=== PATIENT | male | born 1960 | race Caucasian/White ===

== ENCOUNTER 2020-12-28 11:21 | Outpatient (REF) | payer OTHER, SELFPAY ==
[2020-12-28 12:24] LABS: MANUAL DIFF FLAG NO
[2020-12-28 12:25] LABS: Basophils Percent Auto 0.5 % (0-2); Eosinophils Absolute Auto 0.2 X10*3/uL (0.0-0.4); Hematocrit 43.6 % (42-52); Hemoglobin 15.1 g/dl (14.0-18.0); Imm Gran Abs Auto 0.02 X10*3/uL (0.00-0.03); Imm Gran Pct Auto 0.3 % (0.0-0.4); Lymphocytes Absolute Auto 2.7 X10*3/uL (1.2-4.9); Lymphocytes Percent Auto 35.3 % (20-40); Mean Corpuscular HGB Conc 34.6 g/dl (31.0-36.0); Mean Corpuscular Hemoglobin 29.9 pg (27.0-33.0); Mean Corpuscular Volume 86.3 fL (80-98); Monocytes Absolute Auto 0.7 X10*3/uL (0.1-1.2); Monocytes Percent Auto 8.8 % (2-11); Neutrophils Percent Auto 52.1 % (45-73); Platelet Count 159 X10*3/uL (160-400); Red Blood Count 5.05 X10*6/uL (4.60-5.80); Red Cell Distribution Width 13.4 % (11.0-16.0); White Blood Count 7.6 X10*3/uL (4.8-10.8)
[2020-12-28 12:56] LABS: Alanine Aminotransferase 30 U/L (0-40); Albumin Level 4.7 g/dL (3.5-5.0); Alkaline Phosphatase 67 U/L (39-117); Anion Gap 15 (12-20); Aspartate Amino Transferase 30 U/L (5-37); Bilirubin Total 0.9 mg/dL (0.0-1.0); Blood Urea Nitrogen 24 mg/dL (9-16); Carbon Dioxide 27 mmol/L (22-29); Chloride 105 mmol/L (96-108); Cholesterol 169 mg/dL; Estimated Glomerular Filt Rate > 60; Glucose Fasting 99 mg/dL (60-99); HDL Cholesterol 40 mg/dL; LDL Cholesterol Calculated 87 mg/dl; Potassium 4.8 mmol/L (3.3-5.1); Sodium 142 mmol/L (135-145); Total Protein 7.7 g/dL (6.5-8.0); Triglycerides 214 mg/dL
[2020-12-28 13:16] LABS: PSA,Total (Free>4and<10) 0.85 ng/mL (0.00-4.00)
[2020-12-28 13:42] LABS: Uric Acid 10.2 mg/dL (3.4-7.0)
== END 2020-12-28 11:22 | disposition home or self-care (01) ==
LOC: HO.HMGCLDS 11:21
PROVIDERS: PCP Internal Medicine; Visit Provider Internal Medicine
DX: Z00.00 Encounter for general adult medical examination without abnormal findings (principal); Z12.5 Encounter for screening for malignant neoplasm of prostate; Z87.39 Personal history of other diseases of the musculoskeletal system and connective tissue
CPT/HCPCS: 36415; 80053; 80061; 84153; 84550; 85025

== ENCOUNTER 2021-01-02 13:35 | Outpatient (REF) | payer OTHER, SELFPAY ==
--- NOTE | ~2021-01-02 | US_ITS ---
EXAMINATION: US SCROTUM CLINICAL INFORMATION: Other specified disorders of male genital organs. COMPARISON: None TECHNIQUE: A sonogram of the scrotum was performed assessing yates-scale appearance and color Doppler flow. Spectral Doppler analysis of the arterial and venous flow were performed in the testes bilaterally. FINDINGS: RIGHT: Right testicle measures 4.7 x 1.9 x 3.4 cm, volume 15.5 mL. There is a small calcification in the right testicle. No other focal lesion is seen. Spectral Doppler analysis of the arterial and venous flow is normal in the right testis. There is a 1.6 x 1.2 x 1.4 cm slightly complex right epididymal head cyst. There is a 8.7 x 5.3 x 6.5 cm cyst inferior to the right testicle. It is uncertain whether this represents a loculated hydrocele. It could represent a large epididymal tail exophytic cyst. Right epididymal Doppler flow is normal. No right varicocele is seen. LEFT: Left testicle measures 4.8 x 2.6 x 4.0 cm, volume 23.3 mL. No focal testicular parenchymal lesions are visualized. Spectral Doppler analysis of the arterial and venous flow is normal in the left testis. There is a 4.2 x 3.8 x 4.6 cm complex cyst superior to the left testicle. It is uncertain whether this represents an exophytic epididymal head cyst or loculated complex hydrocele.. No left varicocele is seen. Left epididymal Doppler flow is not seen. US/US scrotum IMPRESSION: 1.6 x 1.2 x 1.4 cm minimally complex right epididymal head cyst. Large simple cyst inferior to the right testicle measuring 8 x 5 x 7 cm questionable for an epididymal tail exophytic cyst versus loculated hydrocele. 4 x 4 x 5 cm complex cyst superior to the left testicle questionable for a left epididymal head cyst versus loculated hydrocele.
== END 2021-01-02 13:36 | disposition home or self-care (01) ==
LOC: HO.US 13:35
PROVIDERS: Visit Provider Internal Medicine
DX: N50.89 Other specified disorders of the male genital organs (principal)
CPT/HCPCS: 76870

== ENCOUNTER → 2021-03-18 14:15 | Outpatient (BNVA) | payer OTHER, SELFPAY | PROVIDERS: PCP Internal Medicine; Visit Provider Urology | DX: N43.40 Spermatocele of epididymis, unspecified (principal) | CPT/HCPCS: 99202 ==

== ENCOUNTER 2021-04-21 09:32 | Day surgery (SDC) | payer OTHER, SELFPAY ==
[2021-04-15 11:14] VITALS: BMI 44.2
--- NOTE | 2021-04-18 12:25 | HO.ANESPROP2 ---
Documented by User: Erica Middleton NP 04/18/21 12:26 HPI - Anesthesia Eval Consult details Narrative: 60yo M for Bilateral Excision Spermatocele PMFSH Active Problems Active Problems: All Active Problems (Updated 03/18/21 @ 14:58 by Sergio Sanchez MD) Spermatocele (Acute) Hx of gout (Acute) Colon cancer screening (Acute) Testicular mass (Acute) Past Medical History Medical History Colon cancer screening Depressed Hx of gout Testicular mass Tibial fracture Surgical History Surgical History Hx of appendectomy Hx of ventral hernia repair Social History Social History Patient Tobacco Use Status: Current everyday Tobacco user Cigarettes Per Day: 5 e-Cigarette/Vaping Use: Never Used Use of substances other than those prescribed or required for medical reasons: No Are you DNR?: No Advance Directives: No Advance Directives Information Provided: Yes Meds Allergies Allergy/AdvReac Type Severity Reaction Status Date / Time No Known Allergies Allergy Verified 03/18/21 14:19 Home Medications Medication Instructions Recorded Confirmed Last Taken Type No Known Home Meds 12/06/20 12/06/20 Unknown History Exam Exam Date and Time: April 18, 2021 1225 Height,Weight and Vital Signs: Height 5 ft 8 in Weight 131.995 kg Pertinent Lab Results Pertinent Lab Results: Laboratory Tests 12/28/20 12/28/20 11:30 11:30 WBC 7.6 Hgb 15.1 Hct 43.6 Plt Count 159 L Sodium 142 Potassium 4.8 Chloride 105 Carbon Dioxide 27 BUN 24 H Creatinine 1.12 Assessment and Plan Assessment Anesthesia Assessment: Chart Reviewed Documented by User: Gonzalo Jones 04/21/21 16:52 PMFSH Past Medical History Medical History Colon cancer screening Depressed Hx of gout Testicular mass Tibial fracture Functional capacity: independent ambulation Family History Family history of problems with anesthesia: No Surgical History Surgical History Hx of appendectomy Hx of ventral hernia repair History of Problems with Anesthesia: No Social History Social History Patient Tobacco Use Status: Current everyday Tobacco user Cigarettes Per Day: 5 e-Cigarette/Vaping Use: Never Used Use of substances other than those prescribed or required for medical reasons: No Are you DNR?: No Advance Directives: No Advance Directives Information Provided: Yes Meds Allergies Allergy/AdvReac Type Severity Reaction Status Date / Time No Known Allergies Allergy Verified 03/18/21 14:19 Home Medications Medication Instructions Recorded Confirmed Last Taken Type No Known Home Meds 12/06/20 12/06/20 Unknown History Exam Airway Mallampati Class: III TM Dist: >3cm Neck ROM: Full Loose/Missing/Broken Teeth: Yes Heart: rrr Lungs: bl breath sounds Assessment and Plan Final Anesthetic Review Family History of Problems with Anesthesia: No History of Problems with Anesthesia: No NPO: Yes ASA Class: III Final Preanesthetic Review: Meds/Allgs Chart Reviewed and Anes Risks/Benef Reviewed Patient Risk: Intermediate Procedure Risk: Intermediate Anesthetic Plan Anesthetic Plan: GA Disposition: Standard PACU
[2021-04-21 10:40] VITALS: PULSE 73; RESP 18; TEMP 36.6; O2SAT 95
[2021-04-21] MEDS: Lactated Ringers 1,000 ML 100 ML IVCONT (11:09)
--- NOTE | 2021-04-21 16:05 | P.HPSUR_ITS ---
Pre-Procedural Eval Section A Date of Service: 04/21/21 The patient is an INPATIENT: No Changes since office visit: No Cold of Flu in the past 2 weeks, No New Medical Problems, No Changes in Medication and No Patient answered all questions The History & Physical has been completed within 30 days and I have reviewed it.: No Section B Chief Complaint: spermatocele Details of Present Illness: bilateral spermatocele repair Relevant Family History (Specify if Yes): No Relevant Social History: None Present Medications: see Short Stay Collaborative assessment Medical History: No relevant PMH History of Previous Operations: No relevant previous surgery Allergies: Allergies Allergy/AdvReac Type Severity Reaction Status Date / Time No Known Allergies Allergy Verified 03/18/21 14:19 Review of Systems Sugical H&P ROS: Negative: Constitution, Cardiovascular, Respiratory, Neurological, Psychiatric, Hem-Onc, Allergic/Immunologic, Gastrointestinal, Genitourinary, Musculoskeletal, Integumentary, Endocrine and Eyes/Ears/Nose/Throat Exam Surgical H&P Exam: Normal: HEENT, Normal: Heart, Normal: Lungs, Normal: Extremi ties, Normal: Abdomen, Normal: Skin and Normal: Neurological Plan Diagnosis/Plan: Unchanged ( bilateral spermatocele repair) I have reviewed the history and physical and performed a pertinent physical examination on my patient. No changes have occurred unless specified.
[2021-04-21 18:31] VITALS: BP 145/81; PULSE 83; RESP 19; TEMP 36.6; O2SAT 93
[2021-04-21 18:38] VITALS: BP 149/97; PULSE 80; RESP 18; O2SAT 95
[2021-04-21 18:45] VITALS: BP 142/80; PULSE 75; RESP 20; O2SAT 92
--- NOTE | 2021-04-21 18:47 | W.PM.OPN ---
Operative Note Operative Note Date of Service: 04/21/21 Narrative: PreOperative Diagnosis: bilateral spermatocele Post Operative Diagnosis: left complex hydrocele, right spermatocele Procedure: 1. Left hydrocelectomy 2. Right spermatocelectomy Surgeon: Dr Sergio Sanchez Anesthesia: general Indications for procedure: 60-year-old male. Discomfort from large swelling in testicles. Ultrasound with 8 cm left complex hydrocele and right spermatocele. Recommend surgical intervention with bilateral procedure. He is aware the risks of recurrence, infection. Procedure: After informed consent was verified the patient was brought to the operating room and placed in a supine position. Anesthesia was administered per protocol. the patient was prepped and draped in sterile fashion. Safety pause time-out was performed. Antibiotics have been given. Local anesthetic placed on the median raphe. A 3 in incision was developed through the skin into the subcutaneous tissue. The left testicle was dissected from its sac in scrotum and delivered. Appeared that there was a complex hydrocele. This was opened and a bottle neck procedure was performed. Segment of tissue was removed. Great care was taken to maintain the bleeding edges. A spermatocele was found within the head of the epididymis on the left side in this was also removed. Cautery was used to maintain control plaque the bottle neck procedure used a 3-0 Vicryl interlocking suture in order to lock the hydrocele sac as it was wrapped around the cord. The testicle was then placed back into the scrotum. A drain was placed through the dependent portion of the scrotum and left in position. Attention was directed to the right testicle. This was also delivered through the midline incision. It was found to be a 2 cm cyst within the right epididymal head. This was dissected free carefully. The area once this was removed was reattached to the testicle with 3-0 Vicryl. The testicle was placed back within the sac and closed with running 3-0 Vicryl before a 2nd layer was closed over the incision with another running 3-0 Vicryl. The left testicle area was closed with a running 3-0 Vicryl. The midline was then closed with a running 3-0 Vicryl. The skin was closed with a set of interrupted 3-0 chromics. The drain was sewn into a dressing after the area being cleaned and dried. A Xeroform gauze was placed on the midline incision. the drain had been sewn into part of the dressing so will be easy to remove in 48 hours. Mesh pants were used to keep the dressing in place on the scrotum. He tolerated procedure well was extubated in operating room transferred in stable condition to the recovery area Pathology: Hydrocele sac and spermatocele sac Drains: Deb drain in place left side
[2021-04-21 18:52] VITALS: BP 138/88; PULSE 75; RESP 20; O2SAT 92
[2021-04-21 19:20] VITALS: BP 138/82; PULSE 88; RESP 18; TEMP 36.4; O2SAT 95
== END 2021-04-21 19:24 | disposition home or self-care (01) ==
PROVIDERS: PCP Internal Medicine; Visit Provider Urology
PROC: (CPT 54840; principal; 2021-04-21 12:40)
DX: N43.40 Spermatocele of epididymis, unspecified (principal); N43.2 Other hydrocele; N50.89 Other specified disorders of the male genital organs; F32.9 Major depressive disorder, single episode, unspecified; Z79.899 Other long term (current) drug therapy; F17.210 Nicotine dependence, cigarettes, uncomplicated
CPT/HCPCS: 55040; 54840; 88304; J0330; J0690; J1100; J2405; J3010

== ENCOUNTER → 2021-06-06 09:53 | Outpatient (BNVA) | payer OTHER, SELFPAY | PROVIDERS: PCP Internal Medicine; Visit Provider Urology | DX: N43.40 Spermatocele of epididymis, unspecified (principal) | CPT/HCPCS: 99212 ==

== ENCOUNTER 2021-06-13 12:38 | Outpatient (REF) | payer OTHER, SELFPAY ==
[2021-06-13 14:24] LABS: Alanine Aminotransferase 18 U/L (0-40); Anion Gap 13 (12-20); Aspartate Amino Transferase 18 U/L (5-37); Blood Urea Nitrogen 14 mg/dL (9-16); Calcium 9.4 mg/dL (8.4-10.2); Carbon Dioxide 24 mmol/L (22-29); Chloride 108 mmol/L (96-108); Estimated Glomerular Filt Rate > 60; Glucose Fasting 93 mg/dL (60-99); Sodium 141 mmol/L (135-145)
[2021-06-13 14:35] LABS: Uric Acid 9.4 mg/dL (3.4-7.0)
== END 2021-06-13 12:39 | disposition home or self-care (01) ==
LOC: HO.HMGCLDS 12:38
PROVIDERS: PCP Internal Medicine; Visit Provider Internal Medicine
DX: Z87.39 Personal history of other diseases of the musculoskeletal system and connective tissue (principal)
CPT/HCPCS: 36415; 80048; 84450; 84460; 84550

== ENCOUNTER → 2021-12-04 10:45 | Outpatient (BNVA) | payer OTHER, SELFPAY | PROVIDERS: PCP Internal Medicine; Visit Provider Urology | DX: N43.40 Spermatocele of epididymis, unspecified (principal) | CPT/HCPCS: 99212 ==

== ENCOUNTER 2022-08-21 10:34 | Outpatient (REF) | payer OTHER, SELFPAY ==
[2022-08-21 11:13] LABS: MANUAL DIFF FLAG NO
[2022-08-21 11:23] LABS: Basophils Absolute Auto 0.1 X10*3/uL (0.0-0.2); Basophils Percent Auto 0.9 % (0-2); Eosinophils Percent Auto 0.1 % (0-4); Hematocrit 44.6 % (42.0-52.0); Hemoglobin 15.6 g/dl (14.0-18.0); Imm Gran Abs Auto 0.03 X10*3/uL (0.00-0.03); Imm Gran Pct Auto 0.3 % (0.0-0.4); Lymphocytes Absolute Auto 3.8 X10*3/uL (1.2-4.9); Mean Corpuscular Hemoglobin 29.4 pg (27.0-33.0); Mean Platelet Volume 10.3 fL (9.4-12.4); Monocytes Absolute Auto 0.8 X10*3/uL (0.1-1.2); Monocytes Percent Auto 8.4 % (2-11); Neutrophils Absolute Auto 4.6 x10*3/uL (2.0-8.3); Neutrophils Percent Auto 49.3 % (45-73); Platelet Count 143 X10*3/uL (160-400); Red Blood Count 5.31 X10*6/uL (4.60-5.80); White Blood Count 9.2 X10*3/uL (4.8-10.8)
[2022-08-21 11:36] LABS: Estimated Average Glucose 97 mg/dL
[2022-08-21 12:03] LABS: Anion Gap 12 (12-20); Blood Urea Nitrogen 21 mg/dL (9-16); Calcium 9.7 mg/dL (8.4-10.2); Carbon Dioxide 28 mmol/L (22-29); Chloride 106 mmol/L (96-108); Estimated Glomerular Filt Rate > 60; Glucose Random 71 mg/dL (60-115); Potassium 3.8 mmol/L (3.3-5.1); Sodium 142 mmol/L (135-145)
== END 2022-08-21 10:35 | disposition home or self-care (01) ==
LOC: HO.HMGCLDS 10:34
PROVIDERS: PCP Internal Medicine; Visit Provider Physician Assistant
DX: R53.83 Other fatigue (principal)
CPT/HCPCS: 36415; 80048; 83036; 85025

== ENCOUNTER 2023-01-18 12:16 | Outpatient (AMB) | payer OTHER, SELFPAY ==
[2023-01-18 12:18] VITALS: BP 136/88; PULSE 86; O2SAT 98; BMI 42.9
--- NOTE | 2023-01-18 12:18 | A.OFFPC_ITS ---
Vital Signs 01/18/23 12:18 Height 5 ft 8 in Weight 282 lb 2 oz BMI 42.9 BP 136/88 Blood Pressure Location Rt brachial Position Sitting Pulse 86 Pulse Source Pulse Oximeter Pulse Oximetry (%) 98 Oxygen Delivery Method Room Air Intake Visit Reasons: PE Intake Note: Pt is here today for his PE Allergies No Known Allergies Allergy (Verified 01/19/23 16:40) Medication List - Last Reconciled 01/19/23 by Becki Barlow MD allopurinol 300 mg PO DAILY 30 days indomethacin 50 mg PO BID PRN naproxen 500 mg PO BID PRN 7 days Tobacco use date assessed: 01/18/23 Dental Screening Dental Screen Date: 01/18/23 Did you have a dental visit in the last 12 months?: Yes Did you have a dental problem in the last 6 months where you did not have access to dental care?: No Was dental information given to patient?: No HPI PE HPI Details 62-year-old male with with obesity, hyperuricemia with history of gout, here today for his physical exam. He states that he has been feeling well, not had any attacks of gout since last visit, but needs a refill on his allopurinol. He has not been following any you certain diet, but states that he stays acti ve, does a lot of yd work. [facility] Medical History Annual visit for general adult medical examination with abnormal findings Colon cancer screening Hx of gout Hyperuricemia Morbid obesity Testicular mass Tibial fracture Surgical History Hx of appendectomy Hx of ventral hernia repair Social History Housing: Apartment Patient Tobacco Use Status: Current someday Tobacco user e-Cigarette/Vaping Use: Never Used Current occupational status: unemployed Cognitive needs: No Hearing needs: No Vision needs: No Questionnaire PHQ-9 Over the last 2 weeks, how often have you been bothered by any of the following problems? 1. Little interest or pleasure in doing things: not at all 2. Feeling down, depressed, or hopeless: not at all 3. Trouble falling or staying asleep, or sleeping too much: not at all 4. Feeling tired or having little energy: not at all 5. Poor appetite or overeating: not at all 6. Feeling bad about yourself - or that you are a failure or have let yourself or your family down: not at all 7. Trouble concentrating on things, such as reading the newspaper or watching television: not at all 8. Moving or speaking so slowly that other people could have noticed. Or the opposite - being so fidgety or restless that you have been moving around a lot more than usual: not at all 9. Thoughts that you would be better off or of hurting yourself in some way: not at all Total score: 0 Depression Screening Interpretation: Negative 26213 - PHQ-9 Billing: Yes Source: Developed by Drs. Gelacio Barraza, Marilyn Reynolds, Ethan Baez and colleagues, with an educational leslye from [employer]. Thrive Questionnaire Date Thrive assessed: 01/19/23 I am a: Patient What is your living situation today?: I have a steady place to live Within the past 12 months, did the food you bought not last and you didn't have the money to get more?: Never true Within the past 12 months, did you worry whether your food would run out before you got money to buy more?: Never true Do you have trouble paying for medicines?: No Do you have trouble getting transportation to medical appointments?: No Do you have trouble paying your heating and electricity bill?: No Do you have trouble taking care of your child, family member or friend?: No Do you have trouble with day-to-day activities such as bathing, preparing meals, shopping, managing finances, etc.?: No Are you currently unemployed and looking for a job?: No Are you interested in more education?: No AUDIT C Alcohol Use Questionnaire (AUDIT-C) 1. How often do you have a drink containing alcohol?: Never 2. How many drinks containing alcohol do you have on a typical day when you are drinking?: 1 or 2 3. How often do you have six or more drinks on one occasion?: Never Total Score: 0 MATIAS-7 AMB Questionnaire MAITAS-7 Date MATIAS - 7 assessed: 01/19/23 Feeling nervous, anxious, or on edge: 0 = Not at all Not being able to stop or control worryin = Not at all Worrying too much about different things: 0 = Not at all Trouble relaxin = Not at all Being so restless that it is hard to sit still: 0 = Not at all Becoming easily annoyed or irritable: 0 = Not at all Feeling afraid as if something awful might happen: 0 = Not at all Total MATIAS-7 score (0-4 normal; 5-9 mild; 10-14 moderate; 15-21 severe): 0 Source: Developed by Drs. Gelacio Barraza, Marilyn Reynolds, Ethan Baez and colleagues, with an educational leslye from [employer]. MATIAS-7 Assessment Billing MATIAS-7 Assessment Tool: MATIAS-7 Assessment 59622 Review of Systems Const Denies body aches, Denies fever(s), Denies headache(s) and Denies weakness Eyes Denies change in vision ENT Reports Normal hearing present, Denies dizziness, Denies headache(s), Denies nasal congestion, Denies nasal discharge and Denies sore throat Card Denies chest pain, Denies lightheadedness and Denies dyspnea Resp Denies chest congestion, Denies cough and Denies dyspnea GI Denies abdominal pain, Denies change in bowel habits and Denies heartburn Denies hematuria, Denies difficulty urinating, Denies genital pain, Denies dysuria, Denies urinary frequency, Denies urinary incontinence and Denies urinary urgency Musc Reports no additional complaints Skin/Breast Denies lesions and Denies rash Neuro Reports Normal hearing present, Denies dizziness, Denies headache(s), Denies Sensory deficit (Neuro) and Denies weakness Psych Reports no additional complaints Endo Reports no additional complaints Twin/Lymph Reports no additional complaints Aller/Immun Reports no additional complaints Physical exam (Primary Care) Vital Signs: Last Vital Signs Pulse 86 01/18/23 12:18 BP 136/88 01/18/23 12:18 Pulse Ox 98 01/18/23 12:18 Oxygen Delivery Method Room Air 01/18/23 12:18 BMI result Body Mass Index 42.9 BMI Assessment/Plan discussion: High BMI High, discussed plan: lifestyle, weight reduction, dietary and physical activity Tobacco/Smoking Status: Tobacco use Status Tobacco use date assessed 01/18/23 01/18/23 12:19 Patient Tobacco Use Status Current someday Tobacco 01/18/23 13:07 e-Cigarette/Vaping Use Never Used 01/18/23 12:19 Are you ready to quit: No Tobacco cessation counseling provided: No Tobacco use cessation counseling not done medical reason: other (declined) Depression Screening Interpretation: Negative Thrive Assessment: Date of Thrive Assessment Date Thrive assessed 06/13/21 01/18/23 12:19 Const General: cooperative, healthy appearing, no acute distress and alert Nutritional Appearance: obese Orientation/consciousness: patient oriented x3 Limitations: no limitations HENMT Head: Yes normal to inspection, Yes normocephalic and Yes atraumatic Ears: hearing grossly normal bilaterally, external ears normal, TM's normal bilaterally and EAC's normal General nose exam: Normal external nose present, Normal nasal mucous membranes and turbinates present and No nasal discharge present Face and sinus: Yes normal facial exam, Yes sinuses nontender and Yes face symmetric Mouth: Normal oral and palatal mucosa present, lip normal, tongue normal, oropharynx normal and moist mucous membranes Teeth and gingiva: dentition normal and gingiva normal Throat: Yes posterior oropharynx normal Eyes Conjunctivae: conjunctivae normal Sclerae: sclerae normal Pupils: Equal, round and reactive pupils present EOM: EOMs intact bilaterally Neck Neck: Yes full ROM and Yes no lymphadenopathy Thyroid: Thyroid normal Carotids: normal carotid upstroke Lymphatic: no lymphadenopathy noted Chest Chest palpation & inspection: normal inspection of the chest Resp Effort & Inspection: normal respiratory effort and able to speak in complete sentences Auscultation: clear to auscultation bilaterally Cardio Jugular venous distension: no JVD Rate: regular rate Rhythm: regular rhythm Heart sounds: S1 normal heart sound present and S2 normal heart sound present GI Inspection: Yes Abdominal panniculus present and Yes obesity Palpation (GI): Soft to palpation, nontender, no guarding and no masses Auscultation: normal bowel sounds General: Yes no CVA tenderness Male General Exam: Yes normal external exam, No hernia, No inguinal lymphadenopathy and No Genital lesions present Penis: normal penis and No Genital lesions present Scrotum: scrotum normal Testes: Testes normal Back/Spine/Pelvis Back: no CVA tenderness Skin General skin exam: no rashes or lesions noted Neuro General: patient oriented x3, gait normal, moves all extremities, no focal motor deficits and CN's II-XI intact bilaterally Cranial nerves: Yes Equal, round and reactive pupils present and Yes Normal hearing present Cognition (Neuro): normal cognition Gait exam (Neuro): Normal gait present Motor exam (neuro): 5/5 motor strength present throughout Sensory Exam: No Sensory deficit (Neuro) Extrem General: Yes normal to inspection, Yes full ROM, Yes no pedal edema and Yes normal gait Psych Appearance: grossly normal and well kempt Mental Status: mental status grossly normal Speech and movement: Normal speech and movement present Affect: normal affect Attitude: cooperative Thought process: Normal thought process present Thought content: Normal thought content present Assessment and Plan Assessment & Plan (1) Annual visit for general adult medical examination with abnormal findings: Code(s): Z00.01 - Encounter for general adult medical examination with abnormal findings Plan: Will check appropriate labs. Recommended dental visit every 6 months and regular eye exams, at least every 2 years. Take adequate calcium in diet and vitamin-D 3 at 2000 IU per cap once a day, in addition to weight-bearing exercises to help maintain good muscle tone and weight control. Instructed to do self-testicular exam check for any mass. Declines getting vaccines, does not believe in them. Referred to GI for initial screening colonoscopy (2) Hx of gout: Code(s): Z87.39 - Personal history of other diseases of the musculoskeletal system and connective tissue Plan: Check uric acid , recommend to follow a low purine diet (3) Hyperuricemia: Code(s): E79.0 - Hyperuricemia without signs of inflammatory arthritis and tophaceous disease Plan: Check serum uric acid, refill sent for already. (4) Colon cancer screening: Code(s): Z12.11 - Encounter for screening for malignant neoplasm of colon Plan: Referred to GI for his screening colonoscopy (5) Morbid obesity: Code(s): E66.01 - Morbid (severe) obesity due to excess calories Plan: Discussed need to increase activity and wt reduction. Recommended focusing on improving your health instead of dieting. : Eat Mediterranean diet, limit foods high in fat, sugar, and calories, eat slowly, pay attention to portion sizes, plan your meals ahead of time, start regular physical activity 150 minutes of moderate intensity exercise or 90 minutes/week of vigorous exercise and increase water intake. Orders: Orders Lipid Panel 01/18/23 E66.9 - Obesity, unspecified, E79.0 - Hyperuricemia without signs of inflammatory arthritis and tophaceous disease, Z00.01 - Encounter for general adult medical examination with abnormal findings, Z87.39 - Personal history of other diseases of the musculoskeletal system and connective tissue PSA,Total (Free>4and<10) 01/18/23 E66.9 - Obesity, unspecified, E79.0 - Hyperuricemia without signs of inflammatory arthritis and tophaceous disease, Z00.01 - Encounter for general adult medical examination with abnormal findings, Z87.39 - Personal history of other diseases of the musculoskeletal system and connective tissue Uric Acid 01/18/23 E66.9 - Obesity, unspecified, E79.0 - Hyperuricemia without signs of inflammatory arthritis and tophaceous disease, Z00.01 - Encounter for general adult medical examination with abnormal findings, Z87.39 - Personal history of other diseases of the musculoskeletal system and connective tissue Referrals Gastroenterology Referral Z12.11 - Encounter for screening for malignant neoplasm of colon Medications: Refilled allopurinol 300 mg PO DAILY 30 days 90 tabs 3RF E79.0 - Hyperuricemia without signs of inflammatory arthritis and tophaceous disease, Z87.39 - Personal history of other diseases of the musculoskeletal system and connective tissue Review Patient declined Pneumococcal Vaccine: 01/18/23 Flu Vaccine not done: patient reason Declined TDap/Td: 01/18/23 Coding Level of Care Code Est Pt Prev Care 40-64y(40249) Diagnoses Annual visit for general adult medical examination with abnormal findings Z00.01 Hx of gout Z87.39 Hyperuricemia E79.0 Colon cancer screening Z12.11 Morbid obesity E66.01 Additional Codes MATIAS-7 Assessment Billing - MATIAS-7 Assessment Tool: MATIAS-7 Assessment [id number] ([id number])
== END 2023-01-18 14:35 | disposition home or self-care (01) ==
PROVIDERS: Visit Provider Internal Medicine
DX: Z00.00 Encounter for general adult medical examination without abnormal findings (principal); Z87.39 Personal history of other diseases of the musculoskeletal system and connective tissue; E66.01 Morbid (severe) obesity due to excess calories; Z68.41 Body mass index [BMI] 40.0-44.9, adult; E79.0 Hyperuricemia without signs of inflammatory arthritis and tophaceous disease
CPT/HCPCS: 99396

== ENCOUNTER 2023-01-18 13:58 | Outpatient (REF) | payer OTHER, SELFPAY ==
[2023-01-18 17:30] LABS: Cholesterol 193 mg/dL (<200); HDL Cholesterol 54 mg/dL (>40); LDL Cholesterol Calculated 101 mg/dL (<100); Triglycerides 193 mg/dL (<150); Uric Acid 9.4 mg/dL (3.4-7.0)
[2023-01-18 17:39] LABS: PSA,Total (Free>4and<10) 0.65 ng/mL (0.00-4.00)
== END 2023-01-18 13:59 | disposition home or self-care (01) ==
LOC: HO.HMGCLDS 13:58
PROVIDERS: PCP Internal Medicine; Visit Provider Internal Medicine
DX: Z00.01 Encounter for general adult medical examination with abnormal findings (principal); Z12.5 Encounter for screening for malignant neoplasm of prostate; E66.9 Obesity, unspecified; E79.0 Hyperuricemia without signs of inflammatory arthritis and tophaceous disease; Z87.39 Personal history of other diseases of the musculoskeletal system and connective tissue
CPT/HCPCS: 36415; 80061; 84153; 84550

== ENCOUNTER 2023-11-26 09:24 | Outpatient (AMB) | payer OTHER, SELFPAY ==
--- NOTE | 2023-11-26 09:50 | AM.OFFWIN_ITS ---
Intake Vital Signs 11/26/23 09:51 Height 5 ft 8 in Weight 281 lb BMI 42.7 BP 132/80 Blood Pressure Location Rt brachial Position Sitting Pulse 82 Pulse Source Pulse Oximeter Temp 98.2 F Temp Source Temporal Artery Scan Pulse Oximetry (%) 98 Intake Visit Reasons: EP gout/stomach pain ([place] medication) Intake Note: pt is here for gout in right foot Patient Tobacco Use Status: Current someday Tobacco user Allergies No Known Allergies Allergy (Verified 11/26/23 09:52) Do you need a note to return to daycare/school/sports/work: No HPI HPI Comments History of Present Illness Details 63 y/o male patient who presents to walk in clinic with c/o Gout. Reports long h/o Gout on multiple joints all over my body for ~ >20 years. He presents some Gout medication that he purchased from [employer], that reports working better that Allopurinol (that was prescribed by his PCP). This morning Pt took Allopurinol on empty stomach, and ended up throwing up during the visit. Pt reports stopped taking the medication for ~ [address] [facility] Medical History Annual visit for general adult medical examination with abnormal findings Colon cancer screening Hx of gout Hyperuricemia Morbid obesity Testicular mass Tibial fracture Surgical History Hx of appendectomy Hx of ventral hernia repair Social History Housing: Apartment Patient Tobacco Use Status: Current someday Tobacco user e-Cigarette/Vaping Use: Never Used Current occupational status: unemployed Cognitive needs: No Hearing needs: No Vision needs: No Review of Systems Const All systems reviewed & are unremarkable except as noted in HPI and below Physical Exam Vital Signs: Last Vital Signs Temp 98.2 F 11/26/23 09:51 Pulse 82 11/26/23 09:51 BP 132/80 11/26/23 09:51 Pulse Ox 98 11/26/23 09:51 BMI result Body Mass Index 42.7 Const General: comfortable and no acute distress Nutritional Appearance: obese Orientation/consciousness: patient oriented x3 Neuro General: patient oriented x3, gait normal and moves all extremities Extrem Right lower extremity: ankle Details: tenderness, swelling and no edema; no ecchymosis and no crepitus Left lower extremity: normal to inspection and full ROM Psych Speech and movement: Normal speech and movement present Assessment & Plan Assessment & Plan (1) Gout: Code(s): M10.9 - Gout, unspecified Qualifiers: Chronicity: chronic Gout etiology: unspecified cause Gout site: multiple sites Qualified Code(s): M1A.09X0 - Idiopathic chronic gout, multiple sites, without tophus (tophi) Plan: Ordered Uric Acid levels Ordered Colchcine Ordered Prednisone Advised Pt to take Allupinol as prescribed with full stomach. F/U with PCP (2) Nausea & vomiting: Code(s): R11.2 - Nausea with vomiting, unspecified Qualifiers: Vomiting type: unspecified Qualified Code(s): R11.2 - Nausea with vomiting, unspecified Plan: Ordered Zofran for Nausea and Vomiting. Take medications with food to avoid GI Upset. Orders: Orders Uric Acid Urine Random Today M10.9 - Gout, unspecified Medications: New prednisone 50 mg PO DAILY 5 days 5 tabs 0RF M1A.09X0 - Idiopathic chronic gout, multiple sites, without tophus (tophi) ondansetron 8 mg PO Q8H 20 tabs 0RF vomiting R11.2 - Nausea with vomiting, unspecified colchicine 0.6 mg PO DAILY 30 tabs 0RF M1A.09X0 - Idiopathic chronic gout, multiple sites, without tophus (tophi) Coding Level of Care Code Est Pt Level 3 (79807) Diagnoses Chronic gout of multiple sites, unspecified cause M1A.09X0 Chronicity: chronic Gout etiology: unspecified cause Gout site: multiple sites Nausea and vomiting, unspecified vomiting type R11.2 Vomiting type: unspecified Time Spent (min) 15
[2023-11-26 09:51] VITALS: BP 132/80; PULSE 82; TEMP 36.8; O2SAT 98; BMI 42.7
== END 2023-11-26 11:06 | disposition home or self-care (01) ==
PROVIDERS: PCP Internal Medicine; Visit Provider Nurse Practitioner Family
DX: M1A.09X0 Idiopathic chronic gout, multiple sites, without tophus (tophi) (principal); R11.2 Nausea with vomiting, unspecified
CPT/HCPCS: 99213

== ENCOUNTER 2023-11-26 11:04 | Outpatient (REF) | payer OTHER, SELFPAY ==
[2023-11-26 15:21] LABS: Uric Acid Urine Random 49.6 mg/dL
== END 2023-11-26 11:05 | disposition home or self-care (01) ==
LOC: HO.HMGCLDS 11:04
PROVIDERS: PCP Internal Medicine; Visit Provider Nurse Practitioner Family
DX: M10.9 Gout, unspecified (principal)
CPT/HCPCS: 84560

== ENCOUNTER 2024-11-08 10:43 | Emergency (ER) | payer OTHER, SELFPAY ==
--- NOTE | ~2024-11-08 | XR_ITS ---
EXAMINATION: XR FOOT, RIGHT CLINICAL INFORMATION: pain. COMPARISON: None available. TECHNIQUE: AP, lateral, and oblique views of the right foot. FINDINGS: Osteopenia versus osteoporosis. Degenerative changes in the first tarsometatarsal joint. Degenerative changes in the tarsal bones. No acute cortical disruption. No gross malalignment. No lytic or blastic lesions. Intramedullary adwoa no fully included in the pycle-ht-skof, distal tibia. No subcutaneous emphysema. No metallic or radiopaque foreign body. Small exostosis at the Achilles tendon insertion. XR/XR foot RT 2V IMPRESSION: Degenerative changes without acute fracture or dislocation. Electronically signed by: Robbie Anne MD 11/08/2024 12:52 PM EDT
--- NOTE | ~2024-11-08 | XR_ITS ---
EXAMINATION: XR LUMBOSACRAL SPINE CLINICAL INFORMATION: back pain COMPARISON: None available. TECHNIQUE: Three views of the lumbosacral spine. FINDINGS: Endplate sclerosis decreased intervertebral disc height and marginal osteophyte formation at L2-3 and to a lesser extent L1-2. Decreased intervertebral disc height at L4-5 and L5-S1. No acute cortical disruption. No gross alignment. S-shaped curvature of the lumbar spine which could be positional. No lytic or blastic lesions. XR/XR lumbar spine 2-3V IMPRESSION: Multilevel spondylosis without acute fracture or trauma-related listhesis. Electronically signed by: Robbie Anne MD 11/08/2024 12:51 PM EDT
--- NOTE | ~2024-11-08 | XR_ITS ---
EXAMINATION: XR KNEE, RIGHT CLINICAL INFORMATION: Right knee pain COMPARISON: None available. TECHNIQUE: Four views of the right knee. FINDINGS: Old traumatic deformity proximal diaphysis of the fibula. Intramedullary adwoa no fully included in the [id number]-[id number] in the proximal tibia. Degenerative changes involving mostly the medial compartment and tibial patella joint. No acute cortical disruption or gross malalignment. No gross suprapatellar bursa joint effusion. Osteopenia versus osteoporosis. No lytic or blastic lesions. XR/XR knee RT 4V IMPRESSION: Tricompartmental osteoarthrosis without acute fracture or dislocation. Electronically signed by: Robbie Anne MD 11/08/2024 12:53 PM EDT
[2024-11-08 11:28] VITALS: BP 154/99; PULSE 92; RESP 18; TEMP 36.8; O2SAT 94; BMI 42.1
--- NOTE | 2024-11-08 11:39 | ED.GENADULT ---
HPI - General Adult General Chief complaint: Extremity Injury, Lower Stated complaint: gout Time Seen by Provider: 11/08/24 19:58 Related Data Previous Rx's ?Medication ?Instructions ?Recorded naproxen 500 mg tablet 500 mg PO BID PRN pain 7 days #14 04/21/21 tabs indomethacin 50 mg capsule 50 mg PO BID PRN for gout #60 caps 06/03/21 allopurinol 300 mg tablet 300 mg PO DAILY 30 days #90 tabs 01/18/23 colchicine 0.6 mg tablet 0.6 mg PO DAILY #30 tabs 11/26/23 ondansetron 8 mg disintegrating 8 mg PO Q8H vomiting #20 tabs 11/26/23 tablet prednisone 50 mg tablet 50 mg PO DAILY 5 days #5 tabs 11/26/23 famotidine 20 mg tablet (Pepcid) 20 mg PO BID 5 days #10 tabs 11/08/24 ibuprofen 400 mg tablet 400 mg PO Q6H PRN pain #20 tabs 11/08/24 Allergies Allergy/AdvReac Type Severity Reaction Status Date / Time No Known Allergies Allergy Verified 11/08/24 11:31 [facility] Past Medical History Medical History Morbid obesity Annual visit for general adult medical examination with abnormal findings Hyperuricemia Hx of gout Colon cancer screening Testicular mass Tibial fracture Surgical History Hx of appendectomy Hx of ventral hernia repair Social History Social History Housing: Apartment Patient Tobacco Use Status: Current someday Tobacco user e-Cigarette/Vaping Use: Never Used Do you have a plan to hurt others: No Plan Current occupational status: unemployed Cognitive needs: No Hearing needs: No Vision needs: No Physical Exam ED Vital Signs: Vital Signs - 24 hr 11/08/24 11:28 Temperature 98.2 F Pulse Rate 92 Respiratory Rate 18 Blood Pressure 154/99 H Pulse Oximetry 94 Oxygen Delivery Method Room Air BMI result Body Mass Index 42.1 Course Course Course Narrative: RME: 64-year-old male history of gout presents to ED for right foot right knee right flank lower back pain. Patient states gout exacerbation. Patient's sleep slight knee swelling without any redness or stiffness. Patient denies any chest pain or shortness of breath. Patient denies any dysuria. Physical exam negative for any calf pain or leg swelling. Positive for slight right knee swelling without any redness or stiffness. My foot negative for redness or swelling. X-ray labs ordered Medical Decision Making Lab Data 11/08/24 11:51 11/08/24 11:51 Labs: Lab Results 11/08/24 Range/Units 11:51 WBC 6.3 (4.8-10.8) X10*3/uL RBC 4.63 (4.60-5.80) X10*6/uL Hgb 13.7 L (14.0-18.0) g/dl Hct 39.3 L (42.0-52.0) % MCV 84.9 (80.0-98.0) fL MCH 29.6 (27.0-33.0) pg MCHC 34.9 (31.0-36.0) g/dl RDW 13.9 (11.0-16.0) % Plt Count 150 L (160-400) X10*3/uL MPV 9.5 (9.4-12.4) fL Immature Gran % (Auto) 0.5 H (0.0-0.4) % Neut % (Auto) 55.7 (45-73) % Lymph % (Auto) 33.9 (20-40) % [place] % (Auto) 7.2 (2-11) % Eos % (Auto) 2.1 (0-4) % Baso % (Auto) 0.6 (0-2) % Lymph # (Auto) 2.1 (1.2-4.9) X10*3/uL [place] # (Auto) 0.5 (0.1-1.2) X10*3/uL Eos # (Auto) 0.1 (0.0-0.4) X10*3/uL Baso # (Auto) 0.0 (0.0-0.2) X10*3/uL Abs Immat Gran (auto) 0.03 (0.00-0.03) X10*3/uL Absolute Neuts (auto) 3.5 (2.0-8.3) x10*3/uL Absolute Nucleated RBC 0.000 (0.0-0.012) X10*3/uL Nucleated RBC % (auto) 0.0 (0.0-0.2) /100WBC ESR 18 H (0-15) MM/HR Sodium 141 (135-145) mmol/L Potassium 4.7 (3.3-5.1) mmol/L Chloride 107 (96-108) mmol/L Carbon Dioxide 28 (22-29) mmol/L Anion Gap 11 L (12-20) BUN 21 H (9-16) mg/dL Creatinine 1.27 (0.5-1.4) mg/dL Estim Creat Clear Calc 76.8 Estimated GFR 57 Random Glucose 90 (60-115) mg/dL Uric Acid 7.2 H (3.4-7.0) mg/dL Calcium 9.3 (8.4-10.2) mg/dL Total Bilirubin 0.8 (0.0-1.0) mg/dL AST 27 (5-37) U/L ALT 20 (0-40) U/L Alkaline Phosphatase 67 (39-117) U/L C-Reactive Protein 2.01 H (< or = 0.50) mg/dL Total Protein 7.3 (6.5-8.0) g/dL Albumin 4.6 (3.5-5.0) g/dL Urine Color Yellow Urine Appearance Clear Urine pH 6.0 (5.0-9.0) Ur Specific [place] >= 1.030 H (1.005-1.025) Urine Protein 30 (1+) H (Neg-Trace) mg/dL Urine Glucose (UA) Negative (Negative) mg/dL Urine Ketones Trace (Negative) mg/dL Urine Blood Negative (Negative) Urine Nitrite Negative (Negative) Ur Leukocyte Esterase Negative (Negative) Urine RBC 0-2 (0-2) /HPF Urine WBC 0-5 (0-5) /HPF Ur Squamous Epith Cells 0-2 (0-2) /HPF Urine Bacteria None Seen (None Seen) Hyaline Casts 0-2 (0-2) /LPF Discharge Plan Discharge Clinical Impression: Gout attack Patient Disposition: Home, Self-Care Instructions: Low Purine Diet (ED), Gout (ED) Prescriptions: New ibuprofen 400 mg tablet 400 mg PO Q6H PRN (Reason: pain) Qty: 20 0RF famotidine [Pepcid] 20 mg tablet 20 mg PO BID 5 Days Qty: 10 0RF No Action indomethacin 50 mg capsule 50 mg PO BID PRN (Reason: for gout ) Qty: 60 0RF Rx Instructions: administer with food or milk naproxen 500 mg tablet 500 mg PO BID PRN (Reason: pain) 7 Days Qty: 14 0RF allopurinol 300 mg tablet 300 mg PO DAILY 30 Days Qty: 90 3RF colchicine 0.6 mg tablet 0.6 mg PO DAILY Qty: 30 0RF prednisone 50 mg tablet 50 mg PO DAILY 5 Days Qty: 5 0RF ondansetron 8 mg tablet,disintegrating 8 mg PO Q8H Qty: 20 0RF Referrals: Becki Barlow MD [Primary Care Provider] - 11/10/24 Print Language: Kazakh
[2024-11-08 11:55] LABS: MANUAL DIFF FLAG NO
[2024-11-08 11:58] LABS: Appearance Urine Clear; Color Urine Yellow; Glucose Urine UA Negative (Negative); Leukocyte Esterase Urine Negative (Negative); Nitrite Urine Negative (Negative); Specific Gravity - Urine >= 1.030 (1.005-1.025); UMIC TRIGGER UACC YES; Urine Blood Negative (Negative); Urine Ketones Trace mg/dL (Negative); Urine Protein 30 (1+) mg/dL (Neg-Trace)
[2024-11-08 12:01] LABS: Bacteria Urine None Seen (None Seen); Hyaline Casts Urine 0-2 /LPF (0-2); RBC Urine 0-2 /HPF (0-2); Squamous Epithelial Cell Urine 0-2 /HPF (0-2); WBC Urine 0-5 /HPF (0-5)
[2024-11-08 12:03] LABS: Basophils Percent Auto 0.6 % (0-2); Eosinophils Absolute Auto 0.1 X10*3/uL (0.0-0.4); Eosinophils Percent Auto 2.1 % (0-4); Hematocrit 39.3 % (42.0-52.0); Hemoglobin 13.7 g/dl (14.0-18.0); Imm Gran Abs Auto 0.03 X10*3/uL (0.00-0.03); Imm Gran Pct Auto 0.5 % (0.0-0.4); Lymphocytes Absolute Auto 2.1 X10*3/uL (1.2-4.9); Lymphocytes Percent Auto 33.9 % (20-40); Mean Corpuscular HGB Conc 34.9 g/dl (31.0-36.0); Mean Corpuscular Hemoglobin 29.6 pg (27.0-33.0); Mean Corpuscular Volume 84.9 fL (80.0-98.0); Mean Platelet Volume 9.5 fL (9.4-12.4); Monocytes Absolute Auto 0.5 X10*3/uL (0.1-1.2); Monocytes Percent Auto 7.2 % (2-11); Neutrophils Absolute Auto 3.5 x10*3/uL (2.0-8.3); Neutrophils Percent Auto 55.7 % (45-73); Platelet Count 150 X10*3/uL (160-400); Red Blood Count 4.63 X10*6/uL (4.60-5.80); Red Cell Distribution Width 13.9 % (11.0-16.0); White Blood Count 6.3 X10*3/uL (4.8-10.8)
[2024-11-08 12:21] LABS: Alanine Aminotransferase 20 U/L (0-40); Albumin Level 4.6 g/dL (3.5-5.0); Alkaline Phosphatase 67 U/L (39-117); Anion Gap 11 (12-20); Aspartate Amino Transferase 27 U/L (5-37); Bilirubin Total 0.8 mg/dL (0.0-1.0); Blood Urea Nitrogen 21 mg/dL (9-16); C Reactive Protein 2.01 mg/dL (< or = 0.50); Calcium 9.3 mg/dL (8.4-10.2); Carbon Dioxide 28 mmol/L (22-29); Chloride 107 mmol/L (96-108); Creatinine Clr Calc Pharmacy 76.8; Estimated Glomerular Filt Rate 57; Glucose Random 90 mg/dL (60-115); Potassium 4.7 mmol/L (3.3-5.1); Sodium 141 mmol/L (135-145); Total Protein 7.3 g/dL (6.5-8.0); Uric Acid 7.2 mg/dL (3.4-7.0)
[2024-11-08 12:47] LABS: Erythrocyte Sedimentation Rate 18 MM/HR (0-15)
--- NOTE | 2024-11-08 20:25 | ED_ITS ---
HPI - Extremity Injury (Lower) General Chief Complaint: Extremity Injury, Lower Stated Complaint: gout Time Seen by Provider: 11/08/24 19:58 History of Present Illness HPI Narrative: Patient is a 64-year-old male with a history of gout. Complaining of pain to his right knee to his right ankle had a history of similar pain in the past when he had gout attack. There is no trauma. Patient from home. There is no fever no systemic complaints. Patient has been eating some [place] sausages some meet with dumplings. Related Data Previous Rx's ?Medication ?Instructions ?Recorded naproxen 500 mg tablet 500 mg PO BID PRN pain 7 days #14 04/21/21 tabs indomethacin 50 mg capsule 50 mg PO BID PRN for gout #60 caps 06/03/21 allopurinol 300 mg tablet 300 mg PO DAILY 30 days #90 tabs 01/18/23 colchicine 0.6 mg tablet 0.6 mg PO DAILY #30 tabs 11/26/23 ondansetron 8 mg disintegrating 8 mg PO Q8H vomiting #20 tabs 11/26/23 tablet prednisone 50 mg tablet 50 mg PO DAILY 5 days #5 tabs 11/26/23 famotidine 20 mg tablet (Pepcid) 20 mg PO BID 5 days #10 tabs 11/08/24 ibuprofen 400 mg tablet 400 mg PO Q6H PRN pain #20 tabs 11/08/24 Allergies Allergy/AdvReac Type Severity Reaction Status Date / Time No Known Allergies Allergy Verified 11/08/24 11:31 Review of Systems 2 Review of Systems: No fever no chills positive pain to the right knee positive pain to the right ankle PMFSH Past Medical History Attestation statement: The following information was validated with the patient. Medical History Morbid obesity Annual visit for general adult medical examination with abnormal findings Hyperuricemia Hx of gout Colon cancer screening Testicular mass Tibial fracture Surgical History Hx of appendectomy Hx of ventral hernia repair Social History Social History Housing: Apartment Patient Tobacco Use Status: Current someday Tobacco user e-Cigarette/Vaping Use: Never Used Do you have a plan to hurt others: No Plan Current occupational status: unemployed Cognitive needs: No Hearing needs: No Vision needs: No Physical Exam 2 Vital Signs: Vital Signs: Last Vital Signs Temp 98.2 F 11/08/24 11:28 Pulse 92 11/08/24 11:28 Resp 18 11/08/24 11:28 BP 154/99 H 11/08/24 11:28 Pulse Ox 94 11/08/24 11:28 O2 Del Method Room Air 11/08/24 11:28 BMI result Body Mass Index 42.1 Appearance: Alert. Oriented X3. No acute distress. Eyes: Pupils equal, round and reactive to light. ENT: Pharynx normal. Neck: Normal inspection. Neck supple. No lymph nodes noted. No crepitus CVS: Normal heart rate and rhythm. Pulses normal. Normal S1 and S2 Respiratory: No respiratory distress. Breath sounds normal. No Wheezing. No rales Abdomen: Soft and nontender. No rigidity. No distention. good BS x4 Skin: Skin warm and dry. Normal skin color. Normal skin turgor. Extremities: No lower extremity edema. Small amount of knee effusion noted on the right side. Range of motion grossly intact. There is no gross deformity noted over the right ankle. There is mild pain noted on the medial aspect. There is no redness. There is good distal pulses sensation. Skin is intact. Neuro: Oriented X 3. No motor deficit. No sensory deficit. Moving all extermities. No slurred speech Medical Decision Making Medical Decision Making [facility] Narrative: X-ray of the ankle x-ray of the knee were grossly negative for any acute evidence of fracture. Patient's symptoms consistent with having gout had a history of the same 8 food that is likely contained lots of hearing. Will start patient on NSAID. Follow-up on an outpatient basis. Differential Diagnosis Differential Diagnoses: The differential diagnosis associated with the presentation includes Gout versus arthritis versus trauma Lab Data [facility] Lab Attestation statement: I reviewed the patient's lab results. 11/08/24 11:51 11/08/24 11:51 Labs: Lab Results 11/08/24 Range/Units 11:51 WBC 6.3 (4.8-10.8) X10*3/uL RBC 4.63 (4.60-5.80) X10*6/uL Hgb 13.7 L (14.0-18.0) g/dl Hct 39.3 L (42.0-52.0) % MCV 84.9 (80.0-98.0) fL MCH 29.6 (27.0-33.0) pg MCHC 34.9 (31.0-36.0) g/dl RDW 13.9 (11.0-16.0) % Plt Count 150 L (160-400) X10*3/uL MPV 9.5 (9.4-12.4) fL Immature Gran % (Auto) 0.5 H (0.0-0.4) % Neut % (Auto) 55.7 (45-73) % Lymph % (Auto) 33.9 (20-40) % [place] % (Auto) 7.2 (2-11) % Eos % (Auto) 2.1 (0-4) % Baso % (Auto) 0.6 (0-2) % Lymph # (Auto) 2.1 (1.2-4.9) X10*3/uL [place] # (Auto) 0.5 (0.1-1.2) X10*3/uL Eos # (Auto) 0.1 (0.0-0.4) X10*3/uL Baso # (Auto) 0.0 (0.0-0.2) X10*3/uL Abs Immat Gran (auto) 0.03 (0.00-0.03) X10*3/uL Absolute Neuts (auto) 3.5 (2.0-8.3) x10*3/uL Absolute Nucleated RBC 0.000 (0.0-0.012) X10*3/uL Nucleated RBC % (auto) 0.0 (0.0-0.2) /100WBC ESR 18 H (0-15) MM/HR Sodium 141 (135-145) mmol/L Potassium 4.7 (3.3-5.1) mmol/L Chloride 107 (96-108) mmol/L Carbon Dioxide 28 (22-29) mmol/L Anion Gap 11 L (12-20) BUN 21 H (9-16) mg/dL Creatinine 1.27 (0.5-1.4) mg/dL Estim Creat Clear Calc 76.8 Estimated GFR 57 Random Glucose 90 (60-115) mg/dL Uric Acid 7.2 H (3.4-7.0) mg/dL Calcium 9.3 (8.4-10.2) mg/dL Total Bilirubin 0.8 (0.0-1.0) mg/dL AST 27 (5-37) U/L ALT 20 (0-40) U/L Alkaline Phosphatase 67 (39-117) U/L C-Reactive Protein 2.01 H (< or = 0.50) mg/dL Total Protein 7.3 (6.5-8.0) g/dL Albumin 4.6 (3.5-5.0) g/dL Urine Color Yellow Urine Appearance Clear Urine pH 6.0 (5.0-9.0) Ur Specific [place] >= 1.030 H (1.005-1.025) Urine Protein 30 (1+) H (Neg-Trace) mg/dL Urine Glucose (UA) Negative (Negative) mg/dL Urine Ketones Trace (Negative) mg/dL Urine Blood Negative (Negative) Urine Nitrite Negative (Negative) Ur Leukocyte Esterase Negative (Negative) Urine RBC 0-2 (0-2) /HPF Urine WBC 0-5 (0-5) /HPF Ur Squamous Epith Cells 0-2 (0-2) /HPF Urine Bacteria None Seen (None Seen) Hyaline Casts 0-2 (0-2) /LPF Independent Interpretation I performed an independent interpretation of an: Plain X-Ray (X-ray the knee x- ray of the ankle are grossly negative) Radiology Impression Discussion of test interpretation with radiology: I have reviewed the radiologist's reading. External Record Review External record reviewed: Office record Prescription Management I considered prescription management with: Pain Medication Chronic Conditions Patient?s care impacted by: Hypertension History of gout Social Determinants Patient?s care significantly limited by Social Determinants of Health including: Problems related to primary support group Discharge Plan Discharge Clinical Impression: Gout attack Patient Disposition: Home, Self-Care Instructions: Low Purine Diet (ED), Gout (ED) Prescriptions: New ibuprofen 400 mg tablet 400 mg PO Q6H PRN (Reason: pain) Qty: 20 0RF famotidine [Pepcid] 20 mg tablet 20 mg PO BID 5 Days Qty: 10 0RF No Action indomethacin 50 mg capsule 50 mg PO BID PRN (Reason: for gout ) Qty: 60 0RF Rx Instructions: administer with food or milk naproxen 500 mg tablet 500 mg PO BID PRN (Reason: pain) 7 Days Qty: 14 0RF allopurinol 300 mg tablet 300 mg PO DAILY 30 Days Qty: 90 3RF colchicine 0.6 mg tablet 0.6 mg PO DAILY Qty: 30 0RF prednisone 50 mg tablet 50 mg PO DAILY 5 Days Qty: 5 0RF ondansetron 8 mg tablet,disintegrating 8 mg PO Q8H Qty: 20 0RF Referrals: Becki Barlow MD [Primary Care Provider] - 11/10/24 Print Language: Setswana
[2024-11-08] MEDS: Ibuprofen 400 MG TABLET PO (20:40)
[2024-11-08 21:14] VITALS: BP 163/95; PULSE 89; RESP 19; TEMP 36.9; O2SAT 97
== END 2024-11-08 21:16 | disposition home or self-care (01) ==
PROVIDERS: Physician Assistant; Emergency Provider Emergency Medicine Emergency Medical Services; PCP Internal Medicine
DX: M10.9 Gout, unspecified (principal); M25.461 Effusion, right knee; M25.561 Pain in right knee; I10 Essential (primary) hypertension; F17.200 Nicotine dependence, unspecified, uncomplicated
CPT/HCPCS: 36415; 72100; 73564; 73620; 80053; 81001; 84550; 85025; 85652; 86140; 99283; 99284

== ENCOUNTER → 2024-11-08 11:38 | Outpatient (BNV) | payer OTHER, SELFPAY | PROVIDERS: PCP Internal Medicine; Visit Provider Radiology Diagnostic Radiology | DX: M17.11 Unilateral primary osteoarthritis, right knee (principal); M47.817 Spondylosis without myelopathy or radiculopathy, lumbosacral region; M19.071 Primary osteoarthritis, right ankle and foot | CPT/HCPCS: 72100; 73564; 73620 ==

== ENCOUNTER → 2024-11-17 10:42 | Outpatient (BNVA) | payer OTHER, SELFPAY | PROVIDERS: PCP Internal Medicine ==

== ENCOUNTER 2025-01-02 13:43 | Outpatient (AMB) | payer OTHER, SELFPAY ==
[2025-01-02 13:53] VITALS: BP 140/90; PULSE 63; RESP 16; TEMP 36.8; O2SAT 100; BMI 42.1
--- NOTE | 2025-01-02 13:53 | A.OFFPC_ITS ---
Vital Signs 01/02/25 13:53 Height 5 ft 8 in Weight 277 lb BMI 42.1 BP 140/90 H Blood Pressure Location Lt brachial Position Sitting Respiration 16 Pulse 63 Pulse Source Pulse Oximeter Temp 98.2 F Temp Source Oral Pulse Oximetry (%) 100 Oxygen Delivery Method Room Air Intake Visit Reasons: F/U gout Allergies No Known Allergies Allergy (Verified 01/02/25 14:06) Medication List - Last Reconciled 01/02/25 by Becki Barlow MD ibuprofen 400 mg PO Q6H PRN Tobacco use date assessed: 01/02/25 Dental Screening Dental Screen Date: 01/02/25 Did you have a dental visit in the last 12 months?: No Did you have a dental problem in the last 6 months where you did not have access to dental care?: No Was dental information given to patient?: Patient declined HPI F/U gout HPI Details 4-year-old male with history of gout, he re today for his follow-up. He is previously was on allopurinol 300 mg a day but stopped the medication after he ran out of his prescriptions. Complains of intermittent episodes of joint pain mainly toes and ankles, takes ibuprofen as needed for joint pain, which only helps temporarily. Blood pressure today noted to be elevated lower than on last visit. COUNT INCLUDES THE [facility] Medical History (Updated 01/07/25 @ 18:28 by Becki Barlow MD) Essential hypertension Morbid obesity Annual visit for general adult medical examination with abnormal findings Hyperuricemia Hx of gout Colon cancer screening Testicular mass Tibial fracture Surgical History Hx of appendectomy Hx of ventral hernia repair Social History Housing: Apartment Alcohol intake: former Patient Tobacco Use Status: Former Tobacco user e-Cigarette/Vaping Use: Never Used Current occupational status: unemployed Cognitive needs: No Hearing needs: No Vision needs: Yes Questionnaire PHQ-9 Over the last 2 weeks, how often have you been bothered by any of the following problems? 1. Little interest or pleasure in doing things: not at all 2. Feeling down, depressed, or hopeless: not at all 3. Trouble falling or staying asleep, or sleeping too much: several days 4. Feeling tired or having little energy: not at all 5. Poor appetite or overeating: not at all 6. Feeling bad about yourself - or that you are a failure or have let yourself or your family down: not at all 7. Trouble concentrating on things, such as reading the newspaper or watching television: not at all 8. Moving or speaking so slowly that other people could have noticed. Or the opposite - being so fidgety or restless that you have been moving around a lot more than usual: not at all 9. Thoughts that you would be better off or of hurting yourself in some way: not at all Total score: 1 Depression Screening Interpretation: Negative Depression Screening Done: Yes 59076 - PHQ-9 Billing: Yes Source: Developed by Drs. Gelacio Barraza, Marilyn Reynolds, Ethan Baez and colleagues, with an educational leslye from [employer]. Thrive Questionnaire Date Thrive assessed: 01/02/25 I am a: Patient What is your living situation today?: I have a steady place to live Within the past 12 months, did the food you bought not last and you didn't have the money to get more?: Never true Within the past 12 months, did you worry whether your food would run out before you got money to buy more?: Never true Do you have trouble paying for medicines?: No Do you have trouble getting transportation to medical appointments?: No Do you have trouble paying your heating and electricity bill?: No Do you have trouble taking care of your child, family member or friend?: No Do you have trouble with day-to-day activities such as bathing, preparing meals, shopping, managing finances, etc.?: No Are you currently unemployed and looking for a job?: No Are you interested in more education?: No Please select the resources that you would like help with: None THRIVE Score: 0 AUDIT C Alcohol Use Questionnaire (AUDIT-C) 1. How often do you have a drink containing alcohol?: Never Total Score: 0 Score Reviewed/Action Taken: Yes MATISA-7 AMB Questionnaire MATIAS-7 Date MATIAS - 7 assessed: 01/02/25 Feeling nervous, anxious, or on edge: 0 = Not at all Not being able to stop or control worryin = Not at all Worrying too much about different things: 0 = Not at all Trouble relaxin = Not at all Being so restless that it is hard to sit still: 0 = Not at all Becoming easily annoyed or irritable: 0 = Not at all Feeling afraid as if something awful might happen: 0 = Not at all Total MATIAS-7 score (0-4 normal; 5-9 mild; 10-14 moderate; 15-21 severe): 0 Source: Developed by Drs. Gelacio Barraza, Marilyn Reynolds, Ethan Baez and colleagues, with an educational leslye from [employer]. MATIAS-7 Assessment Billing MATIAS-7 Assessment Tool: MATIAS-7 Assessment 93437 Review of Systems Const Denies body aches, Denies fever(s), Denies headache(s) and Denies weakness Eyes Denies change in vision ENT Reports Normal hearing present, Denies dizziness, Denies headache(s), Denies nasal congestion, Denies nasal discharge and Denies sore throat Card Denies chest pain, Denies lightheadedness and Denies dyspnea Resp Denies chest congestion, Denies cough and Denies dyspnea GI Denies abdominal pain, Denies change in bowel habits and Denies heartburn Denies hematuria, Denies difficulty urinating, Denies genital pain, Denies dysuria, Denies urinary frequency, Denies urinary incontinence and Denies urinary urgency Musc Reports no additional complaints Skin/Breast Denies lesions and Denies rash Neuro Reports Normal hearing present, Denies dizziness, Denies headache(s), Denies Sensory deficit (Neuro) and Denies weakness Psych Reports no additional complaints Endo Reports no additional complaints Twin/Lymph Reports no additional complaints Aller/Immun Reports no additional complaints Physical exam (Primary Care) Vital Signs: Last Vital Signs Temp 98.2 F 01/02/25 13:53 Pulse 63 01/02/25 13:53 Resp 16 01/02/25 13:53 BP 140/90 H 01/02/25 13:53 Pulse Ox 100 01/02/25 13:53 Oxygen Delivery Method Room Air 01/02/25 13:53 BMI result Body Mass Index 42.1 BMI Assessment/Plan discussion: High BMI High, discussed plan: lifestyle, weight reduction, dietary and physical activity Tobacco/Smoking Status: Tobacco use Status Tobacco use date assessed 01/02/25 01/02/25 13:59 Patient Tobacco Use Status Former Tobacco user 01/02/25 13:59 e-Cigarette/Vaping Use Never Used 01/02/25 13:59 Tobacco cessation counseling provided: No Tobacco use cessation counseling not done medical reason: other (declined) PHQ-9: PHQ-9 Score PHQ-9: Total score 3 01/02/25 14:05 Depression Screening Interpretation: Negative Thrive Assessment: Date of Thrive Assessment Date Thrive assessed 01/02/25 01/02/25 14:01 Const General: no acute distress and alert Nutritional Appearance: obese Orientation/consciousness: patient oriented x3 HENMT Head: Yes normocephalic Ears: external ears normal General nose exam: Normal external nose present and Normal nasal mucous membranes and turbinates present Face and sinus: Yes face symmetric Mouth: Normal oral and palatal mucosa present and moist mucous membranes Neck Neck: Yes full ROM and Yes no lymphadenopathy Thyroid: Thyroid normal Resp Effort & Inspection: normal respiratory effort and able to speak in complete sentences Auscultation: clear to auscultation bilaterally Cardio Jugular venous distension: no JVD Rate: regular rate Rhythm: regular rhythm Heart sounds: S1 normal heart sound present and S2 normal heart sound present GI Inspection: Yes Abdominal panniculus present and Yes obesity Palpation (GI): Soft to palpation, nontender, no guarding and no masses Auscultation: normal bowel sounds Skin General skin exam: no rashes or lesions noted Neuro General: patient oriented x3, gait normal, moves all extremities, no focal motor deficits and CN's II-XI intact bilaterally Cranial nerves: Yes Normal hearing present Cognition (Neuro): normal cognition Gait exam (Neuro): Normal gait present Motor exam (neuro): 5/5 motor strength present throughout Sensory Exam: No Sensory deficit (Neuro) Extrem General: Yes normal to inspection, Yes full ROM, Yes no pedal edema and Yes normal gait Psych Appearance: grossly normal and well kempt Mental Status: mental status grossly normal Speech and movement: Normal speech and movement present Affect: normal affect Results Reviewed Results Reviewed: Name: Sergio Bergman Age/Sex: 64/M : 1960 Unit#: [id number] Attend Dr: Genna Palacios MD Re11/08/24 Status: [facility]P [facility]: SPEC : [id number] SERGO: 11/08/24 STATUS: COMP REQ : [id number] RECD: 11/08/[address] [facility] [address]: Oswald Kurtz COMP: 11/08/24 ENTERED: 11/08/[address] [facility] [address]: Becki Barlow MD ORDERED: CBC Auto Diff Test Result Flag Reference WBC 6.3 4.8-10.8 X10*3/uL RBC 4.63 4.60-5.80 X10*6/uL HGB 13.7 L 14.0-18.0 g/dl HCT 39.3 L 42.0-52.0 % MCV 84.9 80.0-98.0 fL MCH 29.6 27.0-33.0 pg MCHC 34.9 31.0-36.0 g/dl RDW 13.9 11.0-16.0 % PLT 150 L 160-400 X10*3/uL MPV 9.5 9.4-12.4 fL Neut Pct Auto 55.7 45-73 % ImGran Pct Auto 0.5 H 0.0-0.4 % Lymp Pct Auto 33.9 20-40 % Iroquois Pct Auto 7.2 2-11 % Eos Pct Auto 2.1 0-4 % Baso Pct Auto 0.6 0-2 % NRBC Pct Auto 0.0 0.0-0.2 /100WBC ANC Neut Abs # 3.5 2.0-8.3 x10*3/uL ImGran Abs Auto 0.03 0.00-0.03 X10*3/uL Lymph Abs Auto 2.1 1.2-4.9 X10*3/uL Iroquois Abs Auto 0.5 0.1-1.2 X10*3/uL Eos Abs Auto 0.1 0.0-0.4 X10*3/uL Baso Abs Auto 0.0 0.0-0.2 X10*3/uL NRBC Abs Auto 0.000 0.0-0.012 X10*3/uL Name: Sergio Bergman Age/Sex: 64/M : 1960 Unit#: [id number] Attend Dr: Genna Palacios MD Re11/08/24 Status: DEP ER Location: .ED Disch: SPEC : [id number] SERGO: 11/08/24 STATUS: COMP REQ : [id number] RECD: 11/08/24-[address]: Oswald Kurtz COMP: 11/08/24-1220 ENTERED: 11/08/24-[address]: Becki Barlow MD ORDERED: CMP, Uric, C Reactive Prot Test Result Flag Reference Sodium 141 135-145 mmol/L Potassium 4.7 3.3-5.1 mmol/L CL 107 96-108 mmol/L CO2 28 22-29 mmol/L Gap 11 L 12-20 BUN 21 H 9-16 mg/dL Creat 1.27 0.5-1.4 mg/dL Estimated CrCl 76.8 eGFR (calculated from the MDRD study equation) and eCrCl (calculated from the Cockcroft-Gault equation) are based on different parameters and may not yield comparable results. If eCrCl result is absurd, please check patient's height/weight. eGFR 57 Chronic Kidney Disease: Estimated GFR < 60 mL/min/1.73m2 Severe Kidney Disease: Estimated GFR < 15 mL/min/1.73m2 Glucose, Random 90 60-115 mg/dL Uric Acid 7.2 H 3.4-7.0 mg/dL CA 9.3 8.4-10.2 mg/dL Total Bili 0.8 0.0-1.0 mg/dL AST (GOT) 27 5-37 U/L ALT (GPT) 20 0-40 U/L CRP 2.01 H < or = 0.50 mg/dL Protein, Total 7.3 6.5-8.0 g/dL Alb 4.6 3.5-5.0 g/dL Alk Phos 67 39-117 U/L Coding Level of Care Code Est Pt Level 4 (30340) Diagnoses Morbid obesity E66.01 Hyperuricemia E79.0 Essential hypertension I10 Additional Codes MATIAS-7 Assessment Billing - MATIAS-7 Assessment Tool: MATIAS-7 Assessment 73547 ([id number]) PHQ-9 - 00453 - PHQ-9 Billing: Yes ([id number]) Assessment & Plan Assessment & Plan (1) Morbid obesity: Code(s): E66.01 - Morbid (severe) obesity due to excess calories Category: Medical Plan: Discussed need to increase activity and weight reduction. Recommended focusing on improving health instead of dieting. Mediterranean diet is a h ealthy diet that helps, limit food high in fat, sugar, and calories. Eat slowly, pay attention to portion sizes, plan your meals ahead of time, start regular physical activity, at least 150 minutes of moderate intensity exercise, or 90 minutes per week of vigorous exercise. (2) Hyperuricemia: Code(s): E79.0 - Hyperuricemia without signs of inflammatory arthritis and tophaceous disease Category: Medical Plan: Latest uric acid level mildly elevated at 7.2. No joint swelling or pain reported at present. Will restart back on allopurinol 300 mg taken once a day and given a prescription for colchicine to take as needed 0.6 mg once a day as n eeded for acute joint pain swelling. Advised to take it always with a meal. Discontinue if any abdominal pain or diarrhea occurs long (3) Essential hypertension: Code(s): I10 - Essential (primary) hypertension Category: Medical Plan: Blood pressure goal is less than 130/80. Does not want to start medication at present time.. Reinforced importance of following a low sodium diet, getting regular exercise, and lowering stress levels. Medications: Changed From allopurinol 300 mg PO DAILY 30 days 90 tabs 3RF E79.0 - Hyperuricemia without signs of inflammatory arthritis and tophaceous disease, Z87.39 - Personal history of other diseases of the musculoskeletal system and connective tissue To allopurinol 300 mg PO DAILY 90 tabs 3RF 3 months E79.0 - Hyperuricemia without signs of inflammatory arthritis and tophaceous disease, Z87.39 - Personal history of other diseases of the musculoskeletal system and connective tissue Refilled colchicine 0.6 mg PO DAILY 30 tabs 0RF [id number] - Idiopathic chronic gout, multiple sites, without tophus (tophi)
== END 2025-01-02 14:19 | disposition home or self-care (01) ==
LOC: HO.HMCC 13:44
PROVIDERS: PCP Internal Medicine; Visit Provider Internal Medicine
DX: I10 Essential (primary) hypertension (principal); E66.01 Morbid (severe) obesity due to excess calories; Z68.41 Body mass index [BMI] 40.0-44.9, adult; E79.0 Hyperuricemia without signs of inflammatory arthritis and tophaceous disease

== ENCOUNTER → 2025-01-02 13:43 | Outpatient (BNVA) | payer OTHER, SELFPAY | PROVIDERS: PCP Internal Medicine; Visit Provider Internal Medicine | DX: M79.675 Pain in left toe(s) (principal); M79.674 Pain in right toe(s); M25.572 Pain in left ankle and joints of left foot; M25.571 Pain in right ankle and joints of right foot; E66.01 Morbid (severe) obesity due to excess calories; I10 Essential (primary) hypertension; M1A.09X0 Idiopathic chronic gout, multiple sites, without tophus (tophi); Z87.39 Personal history of other diseases of the musculoskeletal system and connective tissue; Z68.41 Body mass index [BMI] 40.0-44.9, adult | CPT/HCPCS: 96127; 99212 ==

== ENCOUNTER 2025-05-10 13:14 | Outpatient (AMB) | payer OTHER, SELFPAY ==
[2025-05-10 13:17] VITALS: BP 128/88; PULSE 91; RESP 17; TEMP 36.9; O2SAT 100; BMI 43.9
--- NOTE | 2025-05-10 13:17 | MHC.PC.OV ---
Vital Signs 05/10/25 13:17 Height 5 ft 8 in Weight 289 lb BMI 43.9 BP 128/88 Blood Pressure Location Rt brachial Position Sitting Respiration 17 Pulse 91 Pulse Source Pulse Oximeter Temp 98.4 F Temp Source Oral Pulse Oximetry (%) 100 Oxygen Delivery Method Room Air Intake Visit Reasons: Annual PE Intake Note: Pt is here today for his PE Microbiology Lab Assistant Required: No Allergies No Known Allergies Allergy (Verified 05/12/25 01:49) Medication List - Last Reconciled 05/12/25 by Becki Barlow MD acetaminophen (Tylenol) 325 mg PO QID PRN allopurinol 300 mg PO DAILY 3 months colchicine 0.6 mg PO DAILY Tobacco use date assessed: 05/10/25 Dental Screening Dental Screen Date: 05/10/25 HPI Annual PE HPI Details The patient is a 64-year-old male presenting for an annual physical exam and to review recent lab results. His labs from October of this year showed mild anemia with a low hemoglobin, which he attributes to poor diet and stress. He denies any blood in his stool. His uric acid level was previously high, and he has a history of gout, for which he has a prescription for allopurinol. He does not take allopurinol consistently but has not had a gout flare. He believes stress can trigger his gout. Dietary history includes eating Kielbasa daily, which is a pork product, but he denies eating shellfish, beans, asparagus, or steak. He has a history of high cholesterol. The last cholesterol check was two years ago. His blood sugar was normal on last labs in October. The patient reports issues with sleep, which he attributes to stress over his son's chronic illness. He wakes up 3 to 7 times per night and sometimes has difficulty falling back asleep after waking up at midnight. He also reports feeling sleepy during the day and has experienced an episode of waking up feeling like he could not get enough air. He has a sedentary lifestyle, now mostly staying in his apartment watching TV, and is concerned about his weight. He has never had a flu shot and declines all vaccinations. He has never had a colonoscopy, does not want to get the procedure done or the Cologuard test. [facility] Medical History Fatigue Frequent nocturnal awakening Right upper quadrant abdominal pain Essential hypertension Morbid obesity Annual visit for general adult medical examination with abnormal findings Hyperuricemia Hx of gout Colon cancer screening Testicular mass Tibial fracture Surgical History Hx of appendectomy Hx of ventral hernia repair Social History Housing: Apartment Alcohol intake: former Patient Tobacco Use Status: Former Tobacco user e-Cigarette/Vaping Use: Never Used Current occupational status: unemployed Cognitive needs: No Hearing needs: No Vision needs: Yes Questionnaire PHQ-9 Over the last 2 weeks, how often have you been bothered by any of the following problems? 1. Little interest or pleasure in doing things: not at all 2. Feeling down, depressed, or hopeless: not at all 3. Trouble falling or staying asleep, or sleeping too much: several days 4. Feeling tired or having little energy: not at all 5. Poor appetite or overeating: not at all 6. Feeling bad about yourself - or that you are a failure or have let yourself or your family down: not at all 7. Trouble concentrating on things, such as reading the newspaper or watching television: not at all 8. Moving or speaking so slowly that other people could have noticed. Or the opposite - being so fidgety or restless that you have been moving around a lot more than usual: not at all 9. Thoughts that you would be better off or of hurting yourself in some way: not at all Total score: 1 Depression Screening Interpretation: Negative Depression Screening Done: Yes Source: Developed by Drs. Gelacio Barraza, Marilyn Reynolds, Ethan Baez and colleagues, with an educational leslye from [employer]. Thrive Questionnaire Date Thrive assessed: 01/02/25 AUDIT C Alcohol Use Questionnaire (AUDIT-C) 1. How often do you have a drink containing alcohol?: Never Total Score: 0 MATIAS-7 AMB Questionnaire MATIAS-7 Date MATIAS - 7 assessed: 01/02/25 Feeling nervous, anxious, or on edge: 0 = Not at all Not being able to stop or control worryin = Not at all Worrying too much about different things: 0 = Not at all Trouble relaxin = Not at all Being so restless that it is hard to sit still: 0 = Not at all Becoming easily annoyed or irritable: 0 = Not at all Feeling afraid as if something awful might happen: 0 = Not at all Total MATIAS-7 score (0-4 normal; 5-9 mild; 10-14 moderate; 15-21 severe): 0 Source: Developed by Drs. Gelacio Barraza, Marilyn Reynolds, Ethan Baez and colleagues, with an educational leslye from [employer]. Review of Systems Const Denies body aches, Denies fever(s), Denies headache(s) and Denies weakness Eyes Denies change in vision ENT Reports Normal hearing present and Denies headache(s) Card Denies chest pain, Denies lightheadedness and Denies dyspnea Resp Denies chest congestion, Denies cough and Denies dyspnea GI Denies abdominal pain, Denies change in bowel habits and Denies heartburn Denies hematuria, Denies difficulty urinating, Denies genital pain, Denies dysuria, Denies urinary frequency, Denies urinary incontinence and Denies urinary urgency Musc Reports no additional complaints Skin/Breast Denies lesions and Denies rash Neuro Reports Normal hearing present, Denies headache(s), Denies Sensory deficit (Neuro) and Denies weakness Psych Reports no additional complaints Endo Reports no additional complaints Twin/Lymph Reports no additional complaints Aller/Immun Reports no additional complaints Physical exam (Primary Care) Vital Signs: Last Vital Signs Temp 98.4 F 05/10/25 13:17 Pulse 91 05/10/25 13:17 Resp 17 05/10/25 13:17 BP 128/88 05/10/25 13:17 Pulse Ox 100 05/10/25 13:17 Oxygen Delivery Method Room Air 05/10/25 13:17 BMI result Body Mass Index 43.9 BMI Assessment/Plan discussion: High BMI High, discussed plan: lifestyle, weight reduction, dietary and physical activity Tobacco/Smoking Status: Tobacco use Status Tobacco use date assessed 05/10/25 05/10/25 13:19 Patient Tobacco Use Status Former Tobacco user 05/10/25 13:19 e-Cigarette/Vaping Use Never Used 05/10/25 13:19 Tobacco cessation counseling provided: No Tobacco use cessation counseling not done medical reason: other (declined) PHQ-9: PHQ-9 Score PHQ-9: Total score 1 05/12/25 01:58 Depression Screening Interpretation: Negative Thrive Assessment: Date of Thrive Assessment Date Thrive assessed 01/02/25 05/10/25 13:19 Const General: no acute distress and alert Nutritional Appearance: obese Orientation/consciousness: patient oriented x3 HENMT Head: Yes normocephalic Ears: external ears normal General nose exam: Normal external nose present Face and sinus: Yes face symmetric Mouth: Normal oral and palatal mucosa present and moist mucous membranes Eyes General: appearance normal, both eyes and all related structures Neck Neck: Yes full ROM and Yes no lymphadenopathy Thyroid: Thyroid normal Resp Effort & Inspection: normal respiratory effort and able to speak in complete sentences Auscultation: clear to auscultation bilaterally Cardio Jugular venous distension: no JVD Rate: regular rate Rhythm: regular rhythm Heart sounds: S1 normal heart sound present and S2 normal heart sound present GI Inspection: Yes Abdominal panniculus present and Yes obesity Palpation (GI): Soft to palpation, nontender, no guarding and no masses Auscultation: normal bowel sounds General: Yes no CVA tenderness Back/Spine/Pelvis Back: no CVA tenderness and No back tenderness Skin General skin exam: no rashes or lesions noted Neuro General: patient oriented x3, gait normal, moves all extremities, no focal motor deficits and CN's II-XI intact bilaterally Cranial nerves: Yes Normal hearing present Cognition (Neuro): normal cognition Gait exam (Neuro): Normal gait present Motor exam (neuro): 5/5 motor strength present throughout Sensory Exam: No Sensory deficit (Neuro) Extrem General: Yes normal to inspection, Yes full ROM, Yes no pedal edema and Yes normal gait Psych Appearance: grossly normal and well kempt Mental Status: mental status grossly normal Speech and movement: Normal speech and movement present Affect: normal affect Coding Level of Care Code Est Pt Prev Care 40-64y(39555) Diagnoses Annual visit for general adult medical examination with abnormal findings Z. Morbid obesity E66.01 Hyperuricemia E79.0 Right upper quadrant abdominal pain R10.11 Frequent nocturnal awakening G47.00 Fatigue, unspecified type R53.83 Fatigue type: unspecified Assessment & Plan Assessment & Plan (1) Annual visit for general adult medical examination with abnormal findings: Code(s): Z00.01 - Encounter for general adult medical examination with abnormal findings Category: Medical Plan: The patient is due for routine screenings. A comprehensive metabolic panel, vitamin D, and a PSA test will be completed with his fasting labs. Offered colon cancer screening with Cologuard, but the patient declined after learning a positive result would require a colonoscopy, which he refuses. He also refused the influenza and shingles vaccines. Encouraged weight loss and offered a referral to a dietitian, which he declined. (2) Morbid obesity: Code(s): E66.01 - Morbid (severe) obesity due to excess calories Category: Medical Plan: Stressed importance of adhering to healthy diet, try following a Mediterranean diet, back on lot of processed foods, and start doing regular exercise at least 30 minutes of moderate intensity exercise 3 to 4 times a week. Referral to dietitian offered patient declined (3) Hyperuricemia: Code(s): E79.0 - Hyperuricemia without signs of inflammatory arthritis and tophaceous disease Category: Medical Plan: Will check uric acid level, stressed importance of compliance with taking allopurinol tablets to prevent recurrences. Colchicine to take as needed for acute gout attack (4) Right upper quadrant abdominal pain: Code(s): R10.11 - Right upper quadrant pain Category: Medical Plan: The patient describes intermittent pain in the right upper quadrant, sometimes postprandial. Advised to avoid fatty foods.Ordered abdominal ultrasound complete blood to check for presence of gallbladder stones (5) Frequent nocturnal awakening: Code(s): G47.00 - Insomnia, unspecified Category: Medical Plan: Possible sleep apnea present, referred to sleep study for testing (6) Fatigue: Code(s): R53.83 - Other fatigue Category: Medical Qualifiers: Fatigue type: unspecified Qualified Code(s): R53.83 - Other fatigue Plan: Likely due to lack of restful sleep, referred to neurology for sleep testing Orders: Orders Uric Acid 05/10/25 E66.01 - Morbid (severe) obesity due to excess calories, E79.0 - Hyperuricemia without signs of inflammatory arthritis and tophaceous disease, I10 - Essential (primary) hypertension, Z00.01 - Encounter for general adult medical examination with abnormal findings, Z12.5 - Encounter for screening for malignant neoplasm of prostate, Z13.220 - Encounter for screening for lipoid disorders Complete Blood Count Auto Diff 05/10/25 E66.01 - Morbid (severe) obesity due to excess calories, E79.0 - Hyperuricemia without signs of inflammatory arthritis and tophaceous disease, I10 - Essential (primary) hypertension, Z00.01 - Encounter for general adult medical examination with abnormal findings, Z12.5 - Encounter for screening for malignant neoplasm of prostate, Z13.220 - Encounter for screening for lipoid disorders IRON PROFILE 05/10/25 E66. - Morbid (severe) obesity due to excess calories, E79.0 - Hyperuricemia without signs of inflammatory arthritis and tophaceous disease, I10 - Essential (primary) hypertension, Z00.01 - Encounter for general adult medical examination with abnormal findings, Z12.5 - Encounter for screening for malignant neoplasm of prostate, Z13.220 - Encounter for screening for lipoid disorders Lipid Panel 05/10/25 E66. - Morbid (severe) obesity due to excess calories, E79.0 - Hyperuricemia without signs of inflammatory arthritis and tophaceous disease, I10 - Essential (primary) hypertension, Z00.01 - Encounter for general adult medical examination with abnormal findings, Z12.5 - Encounter for screening for malignant neoplasm of prostate, Z13.220 - Encounter for screening for lipoid disorders Comprehensive [place]. Panel Fast 05/10/25 E66. - Morbid (severe) obesity due to excess calories, E79.0 - Hyperuricemia without signs of inflammatory arthritis and tophaceous disease, I10 - Essential (primary) hypertension, Z00.01 - Encounter for general adult medical examination with abnormal findings, Z12.5 - Encounter for screening for malignant neoplasm of prostate, Z13.220 - Encounter for screening for lipoid disorders Vitamin D 25-OH Total 05/10/25 E66. - Morbid (severe) obesity due to excess calories, E79.0 - Hyperuricemia without signs of inflammatory arthritis and tophaceous disease, I10 - Essential (primary) hypertension, Z00.01 - Encounter for general adult medical examination with abnormal findings, Z12.5 - Encounter for screening for malignant neoplasm of prostate, Z13.220 - Encounter for screening for lipoid disorders PSA,Total (Free>4and<10) 05/10/25 E66. - Morbid (severe) obesity due to excess calories, E79.0 - Hyperuricemia without signs of inflammatory arthritis and tophaceous disease, I10 - Essential (primary) hypertension, Z00.01 - Encounter for general adult medical examination with abnormal findings, Z12.5 - Encounter for screening for malignant neoplasm of prostate, Z13.220 - Encounter for screening for lipoid disorders US abdomen complete 05/10/25 R10.11 - Right upper quadrant pain Referrals Sleep Medicine Referral G47.00 - Insomnia, unspecified, R53.83 - Other fatigue
== END 2025-05-10 14:05 | disposition home or self-care (01) ==
LOC: HO.HMCC 13:15
PROVIDERS: PCP Internal Medicine; Visit Provider Internal Medicine
DX: Z00.01 Encounter for general adult medical examination with abnormal findings (principal); E66.01 Morbid (severe) obesity due to excess calories; Z68.41 Body mass index [BMI] 40.0-44.9, adult; E79.0 Hyperuricemia without signs of inflammatory arthritis and tophaceous disease; R10.11 Right upper quadrant pain; G47.00 Insomnia, unspecified; R53.83 Other fatigue

== ENCOUNTER → 2025-05-10 13:14 | Outpatient (BNVA) | payer OTHER, SELFPAY | PROVIDERS: PCP Internal Medicine; Visit Provider Internal Medicine | DX: Z00.01 Encounter for general adult medical examination with abnormal findings (principal); E66.01 Morbid (severe) obesity due to excess calories; R10.11 Right upper quadrant pain; E79.0 Hyperuricemia without signs of inflammatory arthritis and tophaceous disease; G47.00 Insomnia, unspecified; R53.83 Other fatigue; Z13.31 Encounter for screening for depression | CPT/HCPCS: 96127; 99396 ==

== ENCOUNTER 2025-05-12 10:36 | Outpatient (REF) | payer OTHER, SELFPAY ==
[2025-05-12 13:39] LABS: MANUAL DIFF FLAG NO
[2025-05-12 13:51] LABS: Hematocrit 43.1 % (42.0-52.0); Hemoglobin 14.9 g/dl (14.0-18.0); Imm Gran Abs Auto 0.03 X10*3/uL (0.00-0.03); Imm Gran Pct Auto 0.4 % (0.0-0.4); Lymphocytes Absolute Auto 3.1 X10*3/uL (1.2-4.9); Mean Corpuscular HGB Conc 34.6 g/dl (31.0-36.0); Mean Corpuscular Hemoglobin 29.3 pg (27.0-33.0); Mean Corpuscular Volume 84.7 fL (80.0-98.0); NRBC Abs Auto 0.000 X10*3/uL (0.0-0.012); NRBC Pct Auto 0.0 /100WBC (0.0-0.2); Platelet Count 121 X10*3/uL (160-400); Red Blood Count 5.09 X10*6/uL (4.60-5.80); White Blood Count 8.6 X10*3/uL (4.8-10.8)
[2025-05-12 13:58] LABS: Alanine Aminotransferase 28 U/L (0-40); Albumin Level 4.6 g/dL (3.5-5.0); Alkaline Phosphatase 58 U/L (39-117); Anion Gap 13 (12-20); Aspartate Amino Transferase 33 U/L (5-37); Blood Urea Nitrogen 16 mg/dL (9-16); Calcium 9.3 mg/dL (8.4-10.2); Carbon Dioxide 24 mmol/L (22-29); Chloride 106 mmol/L (96-108); Cholesterol 165 mg/dL (<200); Estimated Glomerular Filt Rate > 60; HDL Cholesterol 41 mg/dL (>40); Iron 155 mcg/dL (45-160); Percent Iron Saturation 59 % (15-50); Potassium 4.0 mmol/L (3.3-5.1); Sodium 139 mmol/L (135-145); Total Iron Binding Capacity 262 mcg/dL (228-428); Total Protein 7.3 g/dL (6.5-8.0); Triglycerides 157 mg/dL (<150); Unsaturated Iron Binding 107 ug/dL; Uric Acid 9.6 mg/dL (3.4-7.0)
[2025-05-12 14:15] LABS: PSA,Total (Free>4and<10) 0.91 ng/mL (0.00-4.00)
== END 2025-05-12 10:37 | disposition home or self-care (01) ==
LOC: HO.HMGCLDS 10:36
PROVIDERS: PCP Internal Medicine; Visit Provider Internal Medicine
DX: Z00.00 Encounter for general adult medical examination without abnormal findings (principal); Z13.220 Encounter for screening for lipoid disorders; Z12.5 Encounter for screening for malignant neoplasm of prostate; I10 Essential (primary) hypertension; E66.01 Morbid (severe) obesity due to excess calories; E79.0 Hyperuricemia without signs of inflammatory arthritis and tophaceous disease
CPT/HCPCS: 36415; 80053; 80061; 82306; 83540; 84153; 84550; 85025